=== PATIENT | female | born 1950 | race Caucasian/White ===

== ENCOUNTER 2018-12-15 05:30 | Observation (INO) | payer OTHER, MEDICARE ==
[~2018-12-15] VITALS: Ht 167.6 cm; Wt 93.6 kg
[2018-12-15] VITALS (37 sets, daily range): BP systolic 109–148; BP diastolic 62–82; PULSE 96–114; RESP 11–24; Ht 167.6 cm; Wt 93.6 kg
[2018-12-15] MEDS ORDERED: LISI-471 PO (06:42)
[2018-12-15] MEDS ORDERED: HYDR25TA6 PO (06:42)
[2018-12-15] MEDS ORDERED: OXYC30TA3 PO (06:43)
[2018-12-15] MEDS ORDERED: MORP60TA PO (06:43)
[2018-12-15] MEDS ORDERED: LACTATED RINGER'S 1,000 ML IV SCH (07:00)
[2018-12-15] MEDS ORDERED: CEFAZOLIN 1 GM INJ ONE (07:00)
--- NOTE | 2018-12-15 07:03 | PREAC ---
Date/Time of Note Date/Time of Note DATE: 12/15/18 TIME: 07:01 Anesthesia Eval and Record Evaluation Time Pre-Procedure Interview DATE: 12/15/18 TIME: 07:01 Age 68 Sex female NPO: 8 hrs Preoperative diagnosis Rt shoulder soft tissue impingement Planned procedure Rt shoulder arthroscopy Past Medical History Past Medical History: Includes Cardio: HTN GI: Morbid obesity Surgery & Anesthesia Issues No known issue Meds Anticoagulation: No Beta Nicole within 24 hr: No Reason Beta Nicole not given: Pt. not on B-Nicole Reported Medications Oxycodone Hcl* (IR) (Roxicodone*) 30 Mg Tablet, 30 MG PO TID PRN for SEVERE PAIN LEVEL 7-10 12/15/18 Morphine Sulfate (Morphine Sulfate ER) 60 Mg Tablet.sa, 60 MG PO BID 12/15/18 Hydrochlorothiazide* (Hydrochlorothiazide*) 25 Mg Tab, 25 MG PO DAILY, #30 TAB 12/15/18 Lisinopril* (Lisinopril*) 20 Mg Tablet, 20 MG PO DAILY, #30 TAB 12/15/18 Current Medications Lactated Ringer's 1,000 ml @ 30 mls/hr Q24H IV ; Start 12/15/18 at 07:00; Status UNV Meds reviewed: Yes Allergies Coded Allergies: No Known Allergy (Unverified , 12/15/18) Allergies Reviewed: Yes Labs/Studies Labs Reviewed: Reviewed by anesthesiologist test: N/A Studies: ECG Pre-procedure Exam Last vitals Vital Signs Date Temp Pulse Resp B/P (MAP) Pulse Ox O2 O2 Flow FiO2 Time Delivery Rate 12/15/18 97.8 96 18 139/82 98 Room Air 06:14 (101) Airway: Adequate mouth opening, Adequate thyromental dist Mallampati: Mallampati II Teeth: Normal Lung: Normal Heart: Normal ASA Physical Status ASA physical status: 3 Emergency: None Planned Anesthetic General/MAC: LMA Planned Pain Management Single shot nerve block, Parenteral pain med Pre-operative Attestations Prior to commencing anesthesia and surgery, the patient was re-evaluated, there was verification of: *The patient's identity *The results of appropriate recent lab work and preoperative vital signs *The above evaluation not changing prior to induction *Anesthetic plan, risk benefits, alternative and complications discussed with patient/family; questions answered; patient/family understands, accepts and wishes to proceed. BEATRIZ CLIFFORD MD Dec 15, 2018 07:03
[2018-12-15] MEDS ORDERED: MIDAZOLAM 1 MG/ML 2 ML INJ ONE (07:12)
[2018-12-15] MEDS ORDERED: ROPIVACAINE 0.5 % 30 ML VIAL ONE (07:14)
[2018-12-15] MEDS ORDERED: hydrALAzine 20 MG INJ ONE (08:54)
[2018-12-15] MEDS ORDERED: EPINEPHrine 1 MG/ML 30 ML INJ IRR ONE (09:02)
[2018-12-15] MEDS ORDERED: morphine 10 MG INJ ONE (10:16)
[2018-12-15] MEDS ORDERED: KETOROLAC 30 MG INJ ONE ×2 (11:27→13:15)
[2018-12-15] MEDS ORDERED: ONDANSETRON 4 MG INJ ONE ×2 (11:28→12:08)
[2018-12-15] MEDS ORDERED: LIDOCAINE 2% (SDV) 5 ML INJ ONE (11:45)
[2018-12-15] MEDS ORDERED: ROCURONIUM 50 MG INJ ONE (11:45)
[2018-12-15] MEDS ORDERED: ETOMIDATE 20 MG INJ ONE (11:45)
[2018-12-15] MEDS ORDERED: SOD CHLORIDE 0.9% 1,000 ML IV SCH (11:52)
--- NOTE | 2018-12-15 11:52 | OPPN ---
Date/Time of Note Date/Time of Note DATE: 12/15/18 TIME: 11:50 Operative Report Preoperative Diagnosis Right complete rotator cuff tear, AC arthropathy, impingement, biceps tear Postoperative Diagnosis same Operation/Procedure Performed Arthroscopic rotator cuff repair, vicki, subacromial decompression, and biceps tenodesis of the right shoulder Surgeon see signature line clinic office assistant DO Bull Anesthesia: general Estimated blood loss: minimal Transfusion Required none Specimen none Grafts/Implants none Complications none JACKIE SOLIS MD Dec 15, 2018 11:52
[2018-12-15] MEDS ORDERED: LABETALOL HCL 20MG INJ IV PRN (12:00)
[2018-12-15] MEDS ORDERED: hydrALAzine 20 MG INJ IV PRN (12:00)
[2018-12-15] MEDS ORDERED: DIPHENHYDRAMINE 50 MG INJ IV PRN (12:00)
[2018-12-15] MEDS ORDERED: ONDANSETRON 4 MG INJ IV PRN ×2 (12:00)
[2018-12-15] MEDS ORDERED: NALOXONE (0.4 MG/ML) INJ IV PRN (12:00)
[2018-12-15] MEDS ORDERED: MEPERIDINE 25 MG INJ IV PRN (12:00)
[2018-12-15] MEDS ORDERED: FENTAnyl 50 MCG/ML VIAL IV PRN (12:00)
[2018-12-15] MEDS ORDERED: METOCLOPRAMIDE 10 MG INJ IV PRN (12:00)
[2018-12-15] MEDS ORDERED: OXYCODONE/ACETAMINOPHEN (5/325) TAB PO PRN ×3 (12:00)
[2018-12-15] MEDS ORDERED: HYDROmorphONE 1 MG/5 ML IV SYRINGE IV PRN ×2 (12:00)
--- NOTE | 2018-12-15 12:00 | PAC ---
Date/Time of Note Date/Time of Note DATE: 12/15/18 TIME: 11:59 Post-Anesthesia Notes Post-Anesthesia Note Last documented vital signs Vital Signs Date Temp Pulse Resp B/P (MAP) Pulse Ox O2 O2 Flow FiO2 Time Delivery Rate 12/15/18 106 20 129/71 98 Mask 6.0 11:55 (90) 12/15/18 98.3 11:49 Activity: WNL Respiratory function: WNL Cardiovascular function: WNL Mental status: Baseline Pain reasonably controlled: Yes Hydration appropriate: Yes Nausea/Vomiting absent: Yes Comments BP:134/56, P:88, Spo2:100%, T:98,8 BEATRIZ CLIFFORD MD Dec 15, 2018 12:00
[2018-12-15] MEDS ORDERED: HYDROmorphONE 1 MG/5 ML IV SYRINGE IV ONE (12:04)
[2018-12-15] MEDS ORDERED: FENTAnyl 50 MCG/ML VIAL ONE ×2 (12:08→12:20)
[2018-12-15] MEDS ORDERED: MEPERIDINE 25 MG INJ ONE (12:20)
[2018-12-15] MEDS ORDERED: KETOROLAC 30 MG INJ IV STA (13:13)
[2018-12-15] MEDS: morphine 2 MG INJ IV PRN ×2 (13:17→13:28)
[2018-12-15] MEDS: OXYCODONE/ACETAMINOPHEN (5/325) TAB PO PRN ×2 (13:29→19:37)
--- NOTE | 2018-12-15 13:36 | OPR ---
DATE OF OPERATION: 12/15/2018 PREOPERATIVE DIAGNOSES: 1. Right shoulder impingement, rule out tear of the rotator cuff and biceps. 2. Rule out degenerative joint disease. POSTOPERATIVE DIAGNOSES: 1. Right shoulder impingement. 2. Significant tear of the biceps tendon with subluxation. 3. Complete tear of rotator cuff C3. 4. Tears of the labrum. 5. 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 5. Extensive synovitis of the shoulder. OPERATION PERFORMED: 1. Arthroscopy, right shoulder. 2. Extensive debridement of the shoulder. 3. Subacromial decompression. 4. Ayo excision 1.2 cm of distal clavicle. 5. Repair rotator cuff with 2 triple loaded SuperRevo screws. 6. Biceps tenodesis. SURGEON: Jackie Martinez MD CELL OPERATION SUPERVISOR: Haris Gottlieb MD ANESTHESIA: General with a supraclavicular block. DESCRIPTION OF PROCEDURE: The patient taken to the operating room and placed in supine position. Sa tisfactory supraclavicular block was given. Satisfactory endotracheal anesthesia was administered, 2 grams Ancef intravenously. The patient was rolled in the left lateral decubitus position, secured w ith beanbag, axillary roll. Arms were carefully padded. Exam under anesthesia revealed full range o f motion with good stability, as mentioned with 2 grams Ancef intravenously. The shoulder was prepped and draped in usual manner suspended in traction. Posterior and anterior po rtals were made. Biceps was completely frayed and subluxated and looked to be in very poor shape as attachment. The posterior labrum had fraying. Posterior recess had fraying. There was grade II to III chondromalacia of the glenoid. The rotator cuff had a complete tear of the rotator cuff along th e supraspinatus C3 and the humeral head had grade II to III chondromalacia. Superior, middle, and in ferior glenohumeral ligaments were intact as was the subscapularis, but there was a partial tear of t he subscapularis. Extensive synovitis was seen throughout the shoulder. Shaver was inserted. Synov ectomy was performed of the joint. The labral tears were debrided. Chondroplasty performed along th e glenoid and humeral head. Rotator cuff was debrided. A special knot was placed through the biceps with #2 FiberWire and the biceps attachment was cut at the glenoid. The rotator cuff was further de brided after fairly significant synovectomy was performed. Our attention was then turned to the suba cromial space. Bursoscopy, subtotal bursectomy was performed. All bursitis was removed. SUBACROMIAL DECOMPRESSION: The entire acromion was cleared, soft tissue removed off the acromion wit h electrosurgery and a shaver, 5 mm of bone was removed from posterior to anterior until the acromion was flat. AYO PROCEDURE: The distal clavicle was exposed. All soft tissue was removed with electrosurgery . A bur was used to remove bone from the distal clavicle until 1.2 cm was removed of the distal clav icle which left plenty of room for the shoulder to move. ROTATOR CUFF: The rotator cuff was carefully evaluated. There was complete tear of the rotator cuff C3 with some tissue left on the greater tuberosity. This tissue was removed on the greater tuberosi ty rotator cuff was cut back and debrided to more viable tendon. Two triple loaded SuperRevo screws were inserted. Curved and straight passers were used to pass the sutures through the rotator cuff. After we were done passing the sutures, SMC knots were used to secure the rotator cuff back to bone. During the rotator cuff repair we passed the rotator cuff suture also see the biceps to provide a bi ceps tenodesis affect. Once the rotator cuff sutures were tied, we tied the biceps tendon distally a s well so a complete biceps tenodese done of the long head of the biceps, as well as complete repair of the rotator cuff supraspinatus. The shoulder was irrigated clear. Wounds were closed with 3-0 black nylon and Steri-Strips. Wojciech lilly dressing was applied as well as an UltraSling in neutral position. A third gram Ancef was given at the end of the procedure. At the end of the procedure sponge, needle count was correct. Patient tolerated procedure well. FARM IMPLEMENT MECHANIC ORTHOPEDIC SURGEON: During the procedure, chemist assistant orthopedic surgeon was used at my requ est. The chemist assistant helped with retraction of the shoulder, manipulating the arthroscope. The assist ant also helped with passing the sutures, and tying the sutures. Without a skilled orthopedic surgeo n assisting me, this could not have been done and should be compensated appropriately. Dictated By: JACKIE CORDOVA/PETER Conf#: [id number] [facility]#: [id number]
[2018-12-15] MEDS ORDERED: LORAZEPAM 2 MG INJ IV ONE (14:00)
[2018-12-15] MEDS ORDERED: morphine 2 MG INJ IV PRN (20:30)
[2018-12-16] MEDS: CEFAZOLIN 1 GM/50 ML (PMX) 50 ML IVPB SCH ×3 (00:02→11:09)
[2018-12-16] MEDS: OXYCODONE/ACETAMINOPHEN (10/325) TAB PO PRN ×3 (00:06→08:28)
[2018-12-16 02:30] VITALS: BP 111/57; PULSE 87; RESP 16
[2018-12-16 07:47] VITALS: BP 123/73; PULSE 97; RESP 19
--- NOTE | 2018-12-16 21:26 | DS ---
DATE OF ADMISSION: 12/15/2018 DATE OF DISCHARGE: 12/16/2018 DISCHARGE DIAGNOSES: Right shoulder impingement with degenerative arthritis acromioclavicular joint and tear of the biceps and rotator cuff. SURGERY: On 12/15/2018, arthroscopy of the right shoulder. Extensive debridement, subacromial decomp ression, Ismael excision distal clavicle repair, rotator cuff and biceps tenodesis. HISTORY OF PRESENT ILLNESS: The patient is a 68-year-old female with long history of pain in her rig ht shoulder. Workup revealed a tear of the rotator cuff and biceps. Admitted now for surgery. PAST MEDICAL HISTORY: See history and physical record. PHYSICAL EXAMINATION: Normal except the orthopedic exam which revealed decreased range of motion. P ositive impingement test and weakness rotator cuff and biceps. LABORATORY: Normal. Chest x-ray was clear. EKG was stable. HOSPITAL COURSE: The patient was cleared medically. She was taken to the operating room and underwe nt above-mentioned procedure. Postoperatively, she had a lot of postoperative pain in her neck and b ack and has a history of pain problems and sees a pain specialist. She was given a fair amount of pa in medication in the recovery room to control her pain. When she was back up on the second floor, janak strange required 2 liters of oxygen and was somewhat somnolent. The nurses and myself did not feel comfort able in sending the patient home because she was not stable and she could not get off the oxygen prop erly. She was admitted overnight and the next day, she was feeling much better. She was discharged on pain pills and antibiotics, to be followed in the office in 1 week. Dictated By: JACKIE SOLIS MD RF/NTS Conf#: [id number] DID#: [id number] CC: JACKIE SOLIS MD;*EndCC*
--- NOTE | 2018-12-17 06:59 | PN ---
DATE: 12/16/2018 HISTORY OF PRESENT ILLNESS: The patient was admitted overnight because she could not get off the 2 l iters oxygen. She was in severe pain and has taken a lot of pain medication, was quite somnolent. S he is feeling better today. She has less pain, discomfort. She comfortable off the oxygen and has b een saturating much better. PHYSICAL EXAMINATION: Pleasant female, oriented x3. The dressing is dry. She can move her elbow, w rist and hand. She can squeeze my hand. Neurologically intact with good radial pulse. Sensation in tact. Block has worn off. ASSESSMENT: Patient doing much better status post major surgery of the right shoulder. PLAN: She will be discharged today on her pain medication and antibiotics, to be followed in the off ice in 1 week. Dictated By: JACKIE CORDOVA/PETER Conf#: [id number] DID#: [id number]
== END 2018-12-16 12:17 | disposition home or self-care (01) ==
LOC: SDS 05:30 → MS1 18:31 → REC 19:56 → MS1 20:08
PROVIDERS: ADMIT Orthopaedic Surgery; ATTEND Orthopaedic Surgery
DX: M75.41 Impingement syndrome of right shoulder (principal); S46.211A Strain of muscle, fascia and tendon of other parts of biceps, right arm, initial encounter; M75.121 Complete rotator cuff tear or rupture of right shoulder, not specified as traumatic; S43.491A Other sprain of right shoulder joint, initial encounter; M94.211 Chondromalacia, right shoulder; M65.811 Other synovitis and tenosynovitis, right shoulder; W19.XXXA Unspecified fall, initial encounter; Y92.480 Sidewalk as the place of occurrence of the external cause
CPT/HCPCS: 29823; 29824; 29826; 29827; 29828; 71045; 81001; C1713; G0378; J0171; J0690; J1170; J1200; J1885; J2060; J2175; J2250; J2270; J2405; J2795; J3010; J7030; J0360

== ENCOUNTER 2019-03-09 05:26 | Day surgery (SDC) | payer OTHER, MEDICARE ==
[2019-03-05 17:54] VITALS: BMI 30.7
[~2019-03-09] VITALS: Ht 167.6 cm; Wt 98.2 kg
[2019-03-09] VITALS (15 sets, daily range): BP systolic 107–149; BP diastolic 59–97; PULSE 81–106; RESP 14–17; Ht 167.6 cm; Wt 98.2 kg
[~2019-03-09 05:26] MED LIST: HYDR25TA6 PO; LISI-471 PO; MORP60TA PO; OXYC30TA3 PO
[2019-03-09] MEDS ORDERED: HYDR-845 PO (06:42)
[2019-03-09] MEDS ORDERED: AMLO-326 PO (06:42)
--- NOTE | 2019-03-09 06:47 | PREAC ---
Date/Time of Note Date/Time of Note DATE: 03/09/19 TIME: 06:46 Anesthesia Eval and Record Evaluation Time Pre-Procedure Interview DATE: 03/09/19 TIME: 06:46 Age 68 Sex female NPO: 8 hrs Preoperative diagnosis Loose anchor, right shoulder Planned procedure Operative arthroscopy, extensive debridement, removal of loose anchor and insertion of new anchors, rotator cuff repair Past Medical History Past Medical History: Includes Cardio: HTN GI: Morbid obesity Surgery & Anesthesia Issues No known issue Meds Anticoagulation: No Beta Nicole within 24 hr: No Reason Beta Nicole not given: Pt. not on B-Nicole Reported Medications Hydroxyzine Hcl* (Atarax*) 50 Mg Tab, 25 MG PO Q8H PRN for ITCHING, TAB 03/09/19 Amlodipine/Valsartan/Hcthiazid (Maesw-Fvlnb-Lbsw 5-160-25 mg) 1 Each Tablet, 1 EACH PO DAILY, #30 TAB 03/09/19 Oxycodone Hcl* (IR) (Roxicodone*) 30 Mg Tablet, 30 MG PO TID PRN for SEVERE PAIN LEVEL 7-10 12/15/18 Morphine Sulfate (Morphine Sulfate ER) 60 Mg Tablet.sa, 60 MG PO BID 12/15/18 Lisinopril* (Lisinopril*) 20 Mg Tablet, 20 MG PO DAILY, #30 TAB 12/15/18 Discontinued Reported Medications Hydrochlorothiazide* (Hydrochlorothiazide*) 25 Mg Tab, 25 MG PO DAILY, #30 TAB 12/15/18 Meds reviewed: Yes Allergies Coded Allergies: No Known Allergy (Unverified , 03/09/19) Allergies Reviewed: Yes Labs/Studies Labs Reviewed: Reviewed by anesthesiologist test: N/A Pre-procedure Exam Last vitals Vital Signs Date Temp Pulse Resp B/P (MAP) Pulse Ox O2 O2 Flow FiO2 Time Delivery Rate 03/09/19 98.2 81 16 149/97 94 Room Air 06:17 (114) Airway: Adequate mouth opening Mallampati: Mallampati II Teeth: Normal Lung: Normal Heart: Normal ASA Physical Status ASA physical status: 3 Emergency: None Planned Anesthetic General/MAC: ETT Planned Pain Management Single shot nerve block, Parenteral pain med Pre-operative Attestations Prior to commencing anesthesia and surgery, the patient was re-evaluated, there was verification of: *The patient's identity *The results of appropriate recent lab work and preoperative vital signs *The above evaluation not changing prior to induction *Anesthetic plan, risk benefits, alternative and complications discussed with patient/family; questions answered; patient/family understands, accepts and wishes to proceed. LISANDRA PARIKH MD Mar 09, 2019 06:47
[2019-03-09] MEDS ORDERED: hydrALAzine 20 MG INJ ONE (07:00)
[2019-03-09] MEDS ORDERED: EPHEDrine 25 MG/5 ML SYG ONE (07:00)
[2019-03-09] MEDS ORDERED: SEVOFLURANE 15 MIN ONE (07:00)
[2019-03-09] MEDS ORDERED: NEOSTIGMINE 3 MG/3 ML SYRINGE ONE ×2 (07:06→08:34)
[2019-03-09] MEDS ORDERED: GLYCOPYRROLATE 0.4 MG INJ ONE ×3 (07:06→08:34)
[2019-03-09] MEDS ORDERED: PROPOFOL 20 ML ONE (07:06)
[2019-03-09] MEDS ORDERED: ROCURONIUM 50 MG INJ ONE (07:06)
[2019-03-09] MEDS ORDERED: LIDOCAINE 2% (SDV) 5 ML INJ ONE (07:06)
[2019-03-09] MEDS ORDERED: SUCCINYLCHOLINE CHLORIDE 100 MG/5 ML SYG IV ONE (07:06)
[2019-03-09] MEDS ORDERED: ROPIVACAINE 0.5 % 30 ML VIAL ONE (07:09)
[2019-03-09] MEDS ORDERED: MIDAZOLAM 1 MG/ML 2 ML INJ ONE (07:13)
--- NOTE | 2019-03-09 07:19 | HPN ---
Date/Time of Note Date/Time of Note DATE: 03/09/19 TIME: 07:18 Interval H&P Admission Note Pt. seen H&P reviewed: No system changes JACKIE SOLIS MD Mar 09, 2019 07:19
[2019-03-09] MEDS ORDERED: CEFAZOLIN 1 GM INJ ONE ×3 (08:34→10:24)
[2019-03-09] MEDS ORDERED: ONDANSETRON 4 MG INJ ONE (08:34)
[2019-03-09] MEDS ORDERED: METOCLOPRAMIDE 10 MG INJ ONE (08:35)
[2019-03-09] MEDS ORDERED: LABETALOL HCL 20MG INJ ONE (08:51)
[2019-03-09] MEDS ORDERED: MIDAZOLAM 1 MG/ML 2 ML INJ IV PRN (09:30)
[2019-03-09] MEDS ORDERED: LABETALOL HCL 20MG INJ IV PRN (09:30)
[2019-03-09] MEDS ORDERED: MEPERIDINE 25 MG INJ IV PRN (09:30)
[2019-03-09] MEDS ORDERED: EPHEDrine 25 MG/5 ML SYG IV PRN (09:30)
[2019-03-09] MEDS ORDERED: ONDANSETRON 4 MG INJ IV PRN ×2 (09:30→11:00)
[2019-03-09] MEDS ORDERED: HYDROmorphONE 1 MG/5 ML IV SYRINGE IV PRN ×3 (09:30)
[2019-03-09] MEDS ORDERED: hydrALAzine 20 MG INJ IV PRN (09:30)
[2019-03-09] MEDS ORDERED: OXYCODONE/ACETAMINOPHEN (5/325) TAB PO PRN ×4 (09:30→11:00)
[2019-03-09] MEDS ORDERED: FENTAnyl 50 MCG/ML VIAL IV PRN ×3 (09:30)
[2019-03-09] MEDS ORDERED: DIPHENHYDRAMINE 50 MG INJ IV PRN (09:30)
[2019-03-09] MEDS ORDERED: METOCLOPRAMIDE 10 MG INJ IV PRN (09:30)
[2019-03-09] MEDS ORDERED: POVIDONE IODINE 10% 28.4 GM OINT ONE (10:38)
[2019-03-09] MEDS ORDERED: SOD CHLORIDE 0.9% 1,000 ML IV SCH (10:59)
--- NOTE | 2019-03-09 10:59 | OPPN ---
Date/Time of Note Date/Time of Note DATE: 03/09/19 TIME: 10:58 Operative Report Preoperative Diagnosis Right shoulder recurrent rotator cuff tear; loose hardware Postoperative Diagnosis Right shoulder recurrent rotator cuff tear; loose hardware Operation/Procedure Performed 1. Diagnostic right shoulder arthroscopy, 2. harware removal right shoulder, 3. revision rotator cuff repair Surgeon see signature line orthodontic technician assistant Luciano Sinha MD Anesthesia: general, other Estimated blood loss: 50 - 100 ml's Transfusion Required none Specimen none Grafts/Implants none Complications none JACKIE SOLIS MD Mar 09, 2019 10:59
[2019-03-09] MEDS ORDERED: morphine 2 MG INJ IV PRN (11:00)
--- NOTE | 2019-03-09 13:27 | PAC ---
Date/Time of Note Date/Time of Note DATE: 03/09/19 TIME: 13:27 Post-Anesthesia Notes Post-Anesthesia Note Last documented vital signs Vital Signs Date Temp Pulse Resp B/P (MAP) Pulse Ox O2 O2 Flow FiO2 Time Delivery Rate 03/09/19 97.6 106 16 122/64 93 Room Air 12:32 (83) 03/09/19 6.0 11:13 Activity: WNL Respiratory function: WNL Cardiovascular function: WNL Mental status: Baseline Pain reasonably controlled: Yes Hydration appropriate: Yes Nausea/Vomiting absent: Yes LISANDRA PARIKH MD Mar 09, 2019 13:27
--- NOTE | 2019-03-09 15:15 | OPR ---
DATE OF OPERATION: 03/09/2019 PREOPERATIVE DIAGNOSES: 1. Status post repair of the rotator cuff with 2 triples loaded Super Revo screws. 2. Tearing out of the anchors of the right shoulder secondary to overuse and falling during the oscar very phase. POSTOPERATIVE DIAGNOSES: 1. Status post repair of the rotator cuff with 2 triples loaded Super Revo anchors. 2. Pulling out of both suture anchors due to excessive use and fall during the postoperative recover y. 3. Status post subacromial decompression, and Ismael excision of distal clavicle. 4. Chondromalacia grade II to III extensive of the glenoid and the humeral head with multiple loose chondral pieces. 5. Tearing of the labrum. OPERATION PERFORMED: 1. Arthroscopy, right shoulder. 2. Extensive debridement of the shoulder. 3. Redo (revision) repair of rotator cuff with 3 anchors triple loaded. [place] #1 was a Cross fit 6 .5 mm Linvatec anchor. 2) Y-knot rotator cuff anchor was 3 ribbons from Linvatec. 3) A triple loaded Super Revo screw from Linvatec. 4. Removal of 2 Super Revo screws and the sutures from the torn rotator cuff. Extremely complex and difficult procedure because it was revision surgery. One anchor pulled out com pletely. The other anchor pulled through the suture and soft tissue had to be removed manually with great deal of difficulty. In addition, the rotator cuff had to be redone completely in a different p osition and was much more difficult and the original surgery necessitating additional 60 minutes of t elidia (22). SURGEON: Jackie Martinez MD BYPRODUCTS OPERATOR: Luciano Sinha MD ANESTHESIA: General with supraclavicular block. DESCRIPTION OF PROCEDURE: The patient was taken to the operating room and placed in supine position. Satisfactory supraclavicular block was given. Satisfactory endotracheal anesthesia was administere d, 2 grams Ancef intravenously. The patient rolled in the left lateral decubitus position, secured w ith beanbag and axillary roll. All areas were carefully padded. Exam under anesthesia revealed full range of motion. The right shoulder was prepped and draped in the usual manner suspended in traction. Previous raw mill operator ior and anterior portals were used. The biceps was still intact. There was fraying of the posterior labrum and posterior recess. She completely pulled out one anchor as we saw on her preoperative x-r ay. The other anchor, the suture had pulled through the rotator cuff and the rotator cuff was retrac alma back, almost to the glenoid. The sutures were hanging in but still tight. The superior, middle, and inferior glenohumerals were intact. Subscapularis was intact. Labrum anteriorly was torn. Sha grace was inserted. The labrum anterior and posterior was debrided. The biceps was debrided. Chondro plasty performed along the glenoid and the humeral head. We grabbed the anchor in from different por nirmala cut the suture, pulled the ankle route and then removed all of the sutures. There were 3 of them . We then had to dig out the other anchor first by cutting the suture, removing them. Then, very ca reful with a grasper we pulled the other anchor and then grabbed it from 2 different portals and jacquelin karlos. We then felt because it was retracted back to the glenoid we had to medialize the repair anothe r millimeter or 2 away from the previous anchor holes. The shaver was used to remove all of the soft tissue until there was good bleeding surfaces, One Crossfit 6.5 mm triple loaded PEEK anchor made b y [employer] was inserted using curved and straight crescents. Sutures were passed through the rotator cuff after the rotator cuff was completely debrided and freshened up. Each suture was saved with a suture saver. Because of concern for enough room and too large an anchor the middle anchor was place d was a Y-knot rotator cuff anchor with 3 ribbon sutures from Linvatec. Curved and straight crescent s were used to pass 3 more sutures through the rotator cuff. A triple loaded Super Revo screw was th en passed posteriorly and the sutures were passed again. All were stable suture anchors. Sequentially each of the rotator cuff knots were tied with an SMC knot. Excellent fixation was obtai claudia. When all were tied down the rotator cuff was very well opposed to a bleeding surface in all angy sherri. Multiple bleeding events in the ENTS were placed more laterally in the greater tuberosity to fa cilitate bleeding. After complete debridement, the shoulder was irrigated clear. Wounds were closed with 3-0 black nylon and Steri-Strips. Compression dressing and UltraSling were applied. The patie nt brought to recovery in stable condition. At the end of the procedure sponge and needle count was correct. Patient tolerated procedure well. I spoke to the patient preoperatively and her and postoperatively with them both as well and understanding clearly that she has to be much more careful, much more responsible not to do the thing s that she was told preoperatively not to do. She can only do her elbow, wrist and hand exercises. She has to wear the sling at all times. When she does take a shower she has to hold her arm to her s betty. She will need to be extra careful. She cannot use it for anything, cannot use it for lifting, pushing, pulling and nothing outside of the sling. They feel they understand this and agreed to do t his. Otherwise, understanding she will probably have to have a reverse shoulder replacement. SHORT HAUL DRIVER ORTHOPEDIC SURGEON: During the procedure, an respiratory care assistant orthopedic surgeon was used at my [facility]. The respiratory care assistant helped with manipulating the arthroscope in the shoulder, PA-C helping to pass the sutures while I retrieved the sutures hoping to pass the anchors. Without a skilled orthopedic surgeon, this procedure could not have been done; therefore, be compensated appropriately. Dictated By: JACKIE CORDOVA/PETER Conf#: [id number] DID#: [id number]
--- NOTE | 2019-03-11 23:20 | DS ---
DATE OF ADMISSION: 03/09/2019 DATE OF DISCHARGE: 03/09/2019 DISCHARGE DIAGNOSES: 1. Retear, rotator cuff, with pulling out of her anchor. 2. Foreign bodies, right shoulder. 3. Fibrosis and scarring. SURGERY: On 03/09: 1. Arthroscopy of the right shoulder. 2. Extensive debridement. 3. Redo repair of rotator cuff with 3 triple-loaded Super Revo screws. 4. Removal of 2 Super Revo screw anchors. HISTORY OF PRESENT ILLNESS: The patient is a 68-year-old right-handed female who previously underwen t a rotator cuff repair with 2 suture anchors. Two weeks after surgery, she was lifting her baby up, and then also fell off of bed and put her arm up at 3 weeks to cushion her fall and pulled out her a nchors from her rotator cuff. Admitted now for revision rotator cuff repair. PAST MEDICAL HISTORY: See the history and physical record. PHYSICAL EXAMINATION: Normal except the orthopedic exam which revealed the wound is well healed. Ra nge of motion is amazingly good. She has pain along the subacromial space and weakness. LABORATORY DATA: Normal. DIAGNOSTIC STUDIES: Chest x-ray was clear. EKG was stable. HOSPITAL COURSE: The patient taken to the operating room and underwent above-mentioned procedure. P ostoperatively, she was up ambulating on the first postoperative day in moderate amount of pain. She was able to be discharged by the nurse from the same-day surgery in stable condition. Dictated By: JACKIE CORDOVA/PETER Conf#: [id number] DID#: [id number]
== END 2019-03-09 13:43 | disposition home or self-care (01) ==
LOC: SDS 05:26
PROVIDERS: ATTEND Orthopaedic Surgery
DX: T84.89XA Other specified complication of internal orthopedic prosthetic devices, implants and grafts, initial encounter (principal); S46.011A Strain of muscle(s) and tendon(s) of the rotator cuff of right shoulder, initial encounter; M67.813 Other specified disorders of tendon, right shoulder; M94.211 Chondromalacia, right shoulder; Y79.3 Surgical instruments, materials and orthopedic devices (including sutures) associated with adverse incidents; Y83.8 Other surgical procedures as the cause of abnormal reaction of the patient, or of later complication, without mention of misadventure at the time of the procedure; L90.5 Scar conditions and fibrosis of skin; I10 Essential (primary) hypertension
CPT/HCPCS: 29823; 29827; C1713; J0360; J0690; J1170; J2250; J2405; J2710; J2765; J2795